=== PATIENT | male | born 1965 | race Caucasian/White ===

== ENCOUNTER 2019-10-22 14:51 | Outpatient (CLI) | payer OTHER, SELFPAY ==
--- NOTE | 2019-10-22 14:30 | DI.RAD_ITS ---
EXAM: XR TIB/FIB LT CLINICAL HISTORY: left calf pain TECHNIQUE: COMPARISON: No exams were available for comparison FINDINGS: Three views were obtained. No bony or soft tissue abnormality seen. IMPRESSION:
== END 2019-10-22 15:11 ==
PROVIDERS: PCP Family Medicine; Visit Provider Student in an Organized Health Care Education/Training Program
DX: M79.662 Pain in left lower leg (principal)
CPT/HCPCS: 73590

== ENCOUNTER 2020-03-06 07:30 | Outpatient (CLI) | payer OTHER, SELFPAY ==
[2020-03-09 19:25] LABS: Patient Race White; SARS-CoV-2 RNA Undetected (Undetected); SARS-CoV-2 Specimen Source Nasopharynx
== END 2020-03-06 07:50 ==
PROVIDERS: PCP Family Medicine; Visit Provider Family Medicine
DX: Z11.59 Encounter for screening for other viral diseases (principal)
CPT/HCPCS: U0003

== ENCOUNTER 2020-03-31 10:45 | Outpatient (CLI) | payer OTHER, SELFPAY ==
--- NOTE | 2020-03-31 10:30 | DI.RAD_ITS ---
EXAM: XR SHOULDER RT COMPLETE 2+V CLINICAL HISTORY: right shoulder pain TECHNIQUE: COMPARISON: CR RIGHT SHOULDER COMPLETE from 08/31/2016 FINDINGS: Two views were obtained. Cartilaginous joint space glenohumeral joint appears fairly well maintained . There is roughening of the inferior cortex of the acromion osteophyte formation noted. Mild AC lore int DJD noted as well. There are osteophytes of the greater tuberosity of the humerus and some small subchondral cysts are probably present in the humeral head as well. IMPRESSION: Degenerative changes as described above. RADIATION DOSE DELIVERED: Total DLP
== END 2020-03-31 11:05 ==
PROVIDERS: PCP Family Medicine; Referring Provider Family Medicine; Visit Provider Physician Assistant Surgical
DX: M19.011 Primary osteoarthritis, right shoulder (principal)
CPT/HCPCS: 73030

== ENCOUNTER 2020-08-27 06:26 | Day surgery (SDC) | payer OTHER, SELFPAY ==
[2020-08-27] VITALS (11 sets, daily range): BP systolic 111–138; BP diastolic 52–94; PULSE 50–63; RESP 14–20; TEMP 36.3–36.5; O2SAT 94–99
[2020-08-27] MEDS: Lactated Ringers 1,000 ML 100 ML IV ×2 (06:59→10:10)
[2020-08-27] MEDS: Bupivacaine 0.5% Pres-Free 30 ML VIAL (07:21)
[2020-08-27] MEDS: Bupivacaine LIPOSOME/PF 133 MG/10 ML VIAL IJ (07:21)
[2020-08-27] MEDS: ceFAZolin 2 GM/50 ML BAG IVPB (07:59)
[2020-08-27] MEDS: EPINEPHrine 30 MG/30 ML VIAL (09:43)
--- NOTE | 2020-08-27 10:16 | W.PM.DSUDISC ---
Discharge Plan Disposition Patient Disposition: HOME Condition: Stable Discharge Details Reason For Visit: Right shoulder surgery Attending Provider: Shlomo Fuller Primary Care Provider: Erin Valles Home Meds and New Rx's Prescriptions: New naproxen 250 mg tablet 250 - 500 mg PO BID PRN (Reason: Moderate pain or swelling) Qty: 60 RF: 0 aspirin 81 mg tablet,delayed release (DR/EC) 81 mg PO DAILY 14 Days Qty: 14 RF: 0 oxycodone 5 mg tablet 5 - 10 mg PO Q4H PRN (Reason: moderate to severe pain) Qty: 22 RF: 0 Continued omeprazole 20 MG capsule,delayed release(DR/EC) 20 mg PO DAILY PRNQty: 90 RF: 0 Discharge Instructions Additional Instructions: Surgery: Shoulder arthroscopy with rotator cuff repair, biceps tenodesis, extensive debridement, and subacromial decompression. Activity: You should keep your arm at your side in a neutral position at all times except for physical therapy. Do not try to lift or raise your arm using your own muscles. You should use the sling whenever you are out of the house. You may have to adjust the abduction pillow or remove it for comfort. At home it is best to remove the sling and rest the arm on a pillow at your side or support the operative side with your other hand. You may allow the arm to dangle at your side. A physical therapy prescription has been sent to begin on 09/03/20. Prescriptions: Aspirin 81 mg take 1 daily to prevent a blood clot for 2 weeks Naproxen 250 mg take 1-2 every 12 hours with a meal as needed for moderate pain Oxycodone 5 mg take 1-2 every 4-6 hours as needed for severe pain You may use [id number] Tylenol (acetaminophen) as needed for mild pain. These pain medications may be taken all at once or in different combinations as needed. Also, recommend Colace (docusate) as a stool softener as surgery and pain medicine cause constipation. Dressings: Remove shoulder bandage after 3 days. Leave the sticky Steri-Strips in place until they fall off or remove them after you shower. Cover the incisions with Band-Aids or leave them open to air. The biceps bandage (inside upper arm) is glued on separately. You may leave this one on a few days longer if it is difficult to remove. There is also glue underneath this bandage that can be left in place until it peels off. You may shower after 5 days. Follow-up: 10-[address] Fuller (09/09/20 at 8:45 AM) You may take off the leg compression stockings this evening at home. You may also leave them on a few days longer if you have a history of leg swelling or edema. Let us know right away if you develop any redness, drainage, fevers, chest pain, or trouble breathing. Do not drink alcohol or drive for at least 24 hours after anesthesia. Please call the office during business hours with any questions or concerns. Referrals: Shlomo Fuller MD [ [facility]YSICIAN] - Discharge Orders Discharge Orders: Discharge Order (Routine); Ordered 08/27/20 Ordered By: Shlomo Fuller DS: Diagnosis Discharge Diagnosis (1) Traumatic tear of right rotator cuff: Status: Acute (2) Biceps tendinopathy of right upper extremity: Status: Acute (3) Bursitis of right shoulder: Status: Acute
--- NOTE | 2020-08-27 11:46 | ROE_ITS ---
Date of service: 08/27/20 Time of Service: 08:00 Operative Note Operative Note DATE OF PROCEDURE: 08/27/20 PRE-OP DIAGNOSIS: Right: 1. Rotator cuff tear 2. LHB tendinopathy 3. Bursitis POST-OP DIAGNOSIS: same PROCEDURE: Right: 1. Rotator cuff repair, CPT# 14763. This involved repair of the supraspinatus using an anchor and sutures to reattach the rotator cuff back to the footprint of the greater tuberosity. 2. Open biceps tenodesis, CPT# 01245. This involved reattaching the long head of the biceps tendon to the proximal humerus in the sub-pectoral area of the bicipital groove at the correct tension. 3. Extensive debridement, CPT# 95672. This involved using arthroscopic hand instruments, power instruments, and radiofrequency instruments to release to release the long head of the biceps tendon and debride areas of labral tearing, synovitis, partial articular infraspinatus tearing, and chondromalacia about the biceps groove humeral head and central glenoid within the glenohumeral joint anteriorly, superiorly and posteriorly. 4. Subacromial decompression with partial acromioplasty, CPT# 41670. This involved using arthroscopic power instruments and a radiofrequency wand to complete a bursectomy and remove bone spurs on the undersurface of the acromion. The historian research assistant was medically required in order to help assist in techniques above, which require positioning the arm, holding the arthroscope, and manipulating multiple instruments and sutures at the same time. This cannot be done without the help of an experienced historian research assistant. SURGEON: Shlomo Fuller AUTO TUNE UP MECHANIC: Tj Nolasco ANESTHESIA TYPE: Local By Surgeon, General LMA/ETT and Primary Nerve Block Refer to Anesthesia Record ESTIMATED BLOOD LOSS: 15 PATHOLOGY: none sent COMPLICATIONS: None Patient was transported to: PACU Patient's condition: stable Implants: Arthrex: 4.75mm SwiveLocks x 1 and unicortical Proximal Biceps Tenodesis Button Indications: The patient was diagnosed with the above conditions and appropriately indicated for surgical intervention. Please see complete medical record for details. Findings: Exam under anesthesia: Full range of motion. No instability. Glenohumeral joint: Significant anterior, superior, and to a lesser extent posterior synovitis. Anterior labral fraying. Superior labral SLAP tear. Long head biceps tendon injection. Intact subscapularis. Full-thickness approximately 1 cm sized most anterior leading edge supraspinatus tear. Somewhat delaminated with posterior partial-thickness tearing less than 25% and intact middle segment. Infraspinatus articularly largely intact. Largely intact articular cartilage except for about the bicipital groove and central anterior glenoid with mild wear and articular fraying. Subacromial space: Only mild bursitis. Moderate undersurface acromial bone spur. Full-thickness supraspinatus most anterior leading edge tear with tissue remnant on the greater tuberosity. Remainder of rotator cuff intact. Procedure Description: In the operating room, general anesthesia was induced. Bilateral shoulders were examined. The patient was positioned in the beachchair position. All bony prominences were well-padded. Preoperative antibiotics were administered. The shoulder was prepped and draped in the usual sterile fashion. The correct patient, procedure, and side of the procedure were all verified prior to incision. Starting through the posterior portal a standard complete diagnostic arthroscopy was performed of the glenohumeral joint including inspection of the long head of the biceps, anterior and superior labrum, subscapularis tendon, supraspinatus and infraspinatus tendons, and axillary recess. The glenoid and humeral head cartilage as well as the posterior labrum were inspected from an anterior viewing portal. Significant findings and interventions noted above. The biceps tendon was released from the superior labrum using arthroscopic scissors. 10 cc of 0.25% bupivacaine with epinephrine was infiltrated about a 2 to 3 cm longitudinal incision at the inferior margin of the pectoralis major localized over the long head of the biceps tendon. Blunt and sharp dissection were used to expose the tendon in the bicipital groove. The tendon was brought out of the wound and kept off the skin on top of a blue towel. The correct location for sub-pectoral fixation was localized, prepped with a rasp, and then drilled with a 3.2 mm drill pin in a unicortical fashion. Using a fiber loop suture the tendon was prepped from the musculotendinous junction a few centimeters proximal. The excess tendon was amputated. The free suture ends were then passed through the unicortical button implant. The drill pin was removed and the implant was placed into the humeral intramedullary canal. The button was flipped and the sutures were tensioned bringing the tendon down to bone. Tension and fixation were then tested and found to be appropriate. A 90 degree clamp was used to pass 1 suture on the other side of the tendon and the free ends of the suture were were tied compressing tendon to bone. The wound was copiously irrigated with normal saline. Subcutaneous tissue was closed using 3- 0 Monocryl in a buried interrupted fashion. Skin was closed using 3-0 Monocryl in a buried subcuticular running fashion. Skin glue was applied over the incision. Mastisol was applied about the incision. The incision was covered with Telfa, gauze, and covered with a Tegaderm dressing. Starting through the posterior portal, the arthroscope was directed into the subacromial space. A lateral 50 yard line lateral portal was created. A combination of power instruments and a radiofrequency ablator were used to debride bursitis anteriorly, posteriorly, and laterally as well as expose and smooth bone spurring on the undersurface of the acromion. The coracoacromial ligament was only partially released. The bursectomy was completed viewing laterally and working from posteriorly and the rotator cuff was thoroughly inspected with findings noted above. A cannula was inserted at the 50 yard line portal as well as the superior anterior lateral portal localized over the very anterior full-thickness supraspinatus tear. The rotator cuff tear was inspected and debrided of frayed tissue over the bony footprint as well as at the anterior and posterior margins. The posterior margin had healthy tissue at the tear was not extended posteriorly into the partial articular tear. Rotator cuff grasper was used to confirm weston tissue directly over the tear that mobilized back to the greater tuberosity footprint although did not cover the entirety of the greater tuberosity as there was frayed tissue that had been debrided and remnant tissue more laterally. A self retrieving suture passer was used to pass a fiber tape in an inverted horizontal mattress fashion through the most out central portion of the tear. A self retrieving suture passer was then used to pass a suture tape fiber link in cinch mode through the posterior margin of the tear. Traction on the sutures confirmed appropriate tissue hold and reduction. The punch was used to localize placement of a single swivel lock anchor that was loaded with the both ends of the fiber tape and the end of the FiberLink sutures that were appropriately tensioned while screw was secured flush to bone. The repair was tested through range of motion as well as probed and found to be stable with secure fixation. The shoulder was drained of arthroscopic fluid. All portal sites were copiously irrigated. These incisions were closed using 3-0 Monocryl in a buried fashion, covered with Mastisol, Steri-Strips, Xeroform, dry gauze, and ABDs. The dressings were covered and secured with Medipore tape. The operative extremity was placed into a sling for immobilization. The patient awoke from anesthesia without complication and was transferred to the recovery room in a stable condition.
== END 2020-08-27 14:03 | disposition home or self-care (01) ==
PROVIDERS: PCP Family Medicine; Visit Provider Student in an Organized Health Care Education/Training Program
PROC: (CPT 29827; principal; 2020-08-27 07:30)
PROC: (CPT 23430; 2020-08-27 07:30)
DX: S46.011A Strain of muscle(s) and tendon(s) of the rotator cuff of right shoulder, initial encounter (principal); M75.51 Bursitis of right shoulder; M75.21 Bicipital tendinitis, right shoulder
CPT/HCPCS: 29827; 23430; 29823; 29826; 76942; J0131; J0690; J1100; J1885; J2001; J2250; J2405; J2704

== ENCOUNTER 2021-03-02 11:56 | Outpatient (CLI) | payer OTHER, SELFPAY ==
--- NOTE | 2021-03-02 11:45 | DI.RAD_ITS ---
Exam(s) XR KNEE LT 3V AP,LAT,DIPAK EXAM: XR KNEE LT 3V AP,LAT,DIPAK CLINICAL HISTORY: LEFT KNEE PAIN. TECHNIQUE: 2D digital imaging was performed. COMPARISON: No exams were available for comparison FINDINGS: BONES: No acute fracture is present. No bony destructive lesion is seen. JOINTS: The joint spaces are well maintained. No joint effusion is seen. There is mild spurring at t he articular aspect of the patella. SOFT TISSUE: Normal. IMPRESSION: Mild degenerative changes. DATA REPOSITORY: RADIATION DOSE DELIVERED:
== END 2021-03-02 11:57 | disposition home or self-care (01) ==
LOC: DIORS 11:57
PROVIDERS: PCP Family Medicine; Referring Provider Family Medicine; Visit Provider Student in an Organized Health Care Education/Training Program
DX: M25.562 Pain in left knee (principal)
CPT/HCPCS: 73562

== ENCOUNTER 2021-03-22 01:56 | Outpatient (CLI) | payer OTHER, SELFPAY ==
--- NOTE | 2021-03-22 07:15 | DI.MRI_ITS ---
Exam(s) MR LOWER JOINT LT WO EXAM: MR LOWER JOINT LT WO CLINICAL HISTORY: Persistent pain,ACUTE MENISCAL INJURY LT KNEE,S83.8X2A TECHNIQUE: Multiplanar multisequence MRI of the knee was performed. COMPARISON: X-rays 03/02/2021 were reviewed FINDINGS: EFFUSION: There is a small amount of increased joint fluid. There is also a small Arrington cyst in the medial popliteal fossa which measures 3.5 cm length by 0.4 cm wide by 0.4 cm AP. MARROW:There is mild subarticular bone contusion signal in the outer aspect of the medial tibial plat eau. No other abnormal intraosseous signal seen. No osteochondral defects. No osseous lesions PATELLOFEMORAL COMPARTMENT: The quadriceps tendon is intact. The patellar ligament is intact. There is surface fibrillation of the retropatellar cartilage over the medial facet. There is, howeve r, no osteochondral defect at this level nor abnormal signal within the patella. The retropatellar c artilage over the lateral facet appears unremarkable. There is nono intraosseous signal to suggest r ecent patellar dislocation. There are no patellar retinacular tears. CRUCIATE LIGAMENTS: The anterior cruciate ligament is intact.The posterior cruciate ligament is intac t. MEDIAL COMPARTMENT/MEDIAL MENISCUS: There is thin linear fluid signal seen within the posterior horn of the medial meniscus which parallels the inferior surface of the meniscus as seen on the coronal im ages. On the sagittal images is violates inferior articular surface on 1 image. The meniscal root i s intact. Anterior horn of the medial meniscus exhibits mild extrusion but no tear.There is signal a bnormality in the soft tissues adjacent to the medial collateral ligament. There is mild sprain sign al in the medial collateral ligament. Also some signal abnormality interposed between the outer aspe ct of the posterior horn of the meniscus and the posterior aspect of the MCL. There are no chondral defects nor osteochondral defects. No osteophytes. MEDIAL COLLATERAL LIGAMENT: As above. LATERAL COMPARTMENT/LATERAL MENISCUS: There is no evidence of lateral meniscal tear.There are no rachelle dral defects, osteochondral defects, subarticular marrow edema, nor osteophytes evident. ILIOTIBIAL BAND: Intact LATERAL COLLATERAL LIGAMENT COMPLEX: The fibular collateral ligament is intact. The biceps femoris t endon is intact.There is some fluid at the musculotendinous junction of the popliteus component of th e LCL complex. IMPRESSION: 1. Thin linear signal abnormality in the inferior aspect of the posterior horn of the medial meniscus which parallels the meniscal surface but does appear to violate the articular surface on 1 image and therefore may represent a tear. This does not involve the meniscal root. There is no bucket-handle configuration. There is mild subarticular edema in the tibial plateau immediately subjacent to this finding. No abnormal signal in the overlying femoral condyle. There is, however, some injury signa l interposed between the posterior aspect of the meniscus and the posterior aspect of the MCL. 2. No significant findings in the lateral compartment. 3. There is loss of the normal smooth contour over the retropatellar cartilage of the medial facet, t his over with a 1.4 cm. However, there is no deep fissure at this level, just surface irregularity a nd there is no abnormal degenerative signal within the patella. Similar findings are not seen over t he retropatellar cartilage of the lateral facet. 4. Anterior and posterior cruciate ligaments are intact. The iliotibial band is intact. Small joint effusion. Small Arrington cyst. DATA REPOSITORY:
== END 2021-03-22 02:16 ==
PROVIDERS: PCP Family Medicine; Visit Provider Student in an Organized Health Care Education/Training Program
DX: S83.8X2A Sprain of other specified parts of left knee, initial encounter (principal); M25.462 Effusion, left knee; M71.22 Synovial cyst of popliteal space [Baker], left knee
CPT/HCPCS: 73721

== ENCOUNTER 2021-04-06 01:51 | Outpatient (CLI) | payer OTHER, SELFPAY ==
[2021-04-06 09:52] LABS: Source Nasal/Nares
[2021-04-06 12:48] LABS: COVID-19 PCR Negative (Negative)
== END 2021-04-06 01:52 | disposition home or self-care (01) ==
LOC: LBO 01:51
PROVIDERS: PCP Family Medicine; Visit Provider Student in an Organized Health Care Education/Training Program
DX: Z20.822 Contact with and (suspected) exposure to COVID-19 (principal); Z01.818 Encounter for other preprocedural examination
CPT/HCPCS: 87635

== ENCOUNTER 2021-04-08 11:30 | Day surgery (SDC) | payer OTHER, SELFPAY ==
[2021-04-08] VITALS (9 sets, daily range): BP systolic 106–148; BP diastolic 50–92; PULSE 55–67; RESP 11–17; TEMP 36.4–36.7; O2SAT 95–99; BMI 31.3
--- NOTE | 2021-04-08 12:24 | W.ANESPRE ---
General Info Date of Service Date Performed: 04/08/21 Height: 5 ft 8 in Weight: 93.5 kg Body Mass Index (BMI): 31.3 Surgical Procedure: Operation Date: 04/08/21 13:10 Proposed Procedures Side Surgeon p Knee Arthroscopy with any indicated mensical,condral, and synovial surgery Left Shlomo Fuller MD Meds Allergies and Home Medications Allergies Allergy/AdvReac Type Severity Reaction Status Date / Time No Known Drug Allergies Allergy Unknown Verified 04/08/21 11:51 Home Medication Medication Instructions Recorded omeprazole 20 mg PO DAILY PRN #90 tab-cap 02/28/17 Current Visit Medications: Current Medications Generic Name Dose Route Start Last Admin Trade Name Freq PRN Reason Stop Dose Admin Ringer's Solution 1,000 mls @ 100 mls/hr 04/08/21 06:00 IV 05/07/21 23:59 INFUSION DREW Cefazolin Sodium/Dextrose 2 gm in 50 mls @ 100 mls/hr 04/08/21 06:00 Ancef Duplex IVPB 05/07/21 23:59 PREOP DREW IV Miscellaneous Supplies 1 each 04/08/21 06:00 Iv Access IV 05/07/21 23:59 DIRECTED DREW Naproxen 250 - 500 mg 04/08/21 12:01 Naproxen 500 Mg Tab PO BID PRN PRN Oxycodone HCl 5 - 10 mg 04/08/21 12:01 Oxycodone 5 Mg Tab PO Q4H PRN PRN Sodium Chloride 0 ml 04/08/21 06:00 Normal Saline Flush 10 Ml Syr IV 05/07/21 23:59 PRN PRN Sodium Chloride 0 ml 04/08/21 06:00 Normal Saline 10 Ml Vial IJ 05/07/21 23:59 DIRECTED PRN Sterile Water 0 ml 04/08/21 06:00 Water,Injection,Sterile 10 Ml Vial IJ 05/07/21 23:59 DIRECTED PRN PFSH Active Problems Active Problems: Problem Status Onset Code Right knee injury ~02/2021 S89.91XA Chondromalacia patellae of left knee M22.42 Acute medial meniscal injury of left knee ~12/2020 S83.8X2A S/P right rotator cuff repair 08/27/20 Z98.890 Gastroesophageal reflux disease with esophagitis K21.0 Annual physical exam 11/13/14 Z00.00 Medical History Medical History Biceps tendinopathy of right upper extremity Bursitis of right shoulder Bursitis of right shoulder Gastrocnemius strain, left Hamstring tightness of both lower extremities Knee pain Strain of right gastrocnemius muscle Tightness of both gastrocnemius muscles Traumatic tear of right rotator cuff (~01/2020) Surgical History Surgical History Colonoscopy - IV Sedation (05/04/15) PROCEDURES l shoulder bone spurs, fixed a tear. r knee arthroscopy l achilles tendon Tonsillectomy Tobacco Smoking/Tobacco Use Status: Former Tobacco Use Alcohol Alcohol Intake: current Alcohol intake frequency: a few times a week Substance Use Substance use: Never Substance use type: does not use Vital Signs and Lab Results Vital Signs Most Recent Vital Signs in EMR: Most Recent Vital Signs Temp Pulse Resp BP Pulse Ox 36.6 C 67 16 148/92 H 97 04/08/21 11:54 04/08/21 11:54 04/08/21 11:54 04/08/21 11:54 04/08/21 11:54 Lab Results Blood Type / Crossmatch: No Data to Display Complete Blood Count: No Data to Display Complete Metabolic Panel: No Data to Display Liver Function Panel: No Data to Display Coagulation Panel: No Data to Display Cardiac Panel: No Data to Display Arterial Blood Gas: No Data to Display Venous Blood Gas: No Data to Display Pancreas Panel: No Data to Display Thyroid Panel: No Data to Display Infectious Disease: Coronavirus (COVID-19)(PCR) Negative (Negative) 04/06/21 08:31 04/06/21 Coronavirus 2019 Source Nasal/Nares 04/06/21 08:31 04/06/21 Blood Cultures: No Data to Display Toxicology Panel: No Data to Display Anesthesia Assessment and Plan Anesthesia History Personal History: No History of Anesthesia Complications Family History: No Family History of Anesthesia Complications Exercise Tolerance Exercise Tolerance: Metabolic Equivalents>4 Pertinent Negatives Pertinent Negatives: No Symptoms of GERD, No Major Cardiovascular Symptoms or Complaints and No Major Pulmonary Symptoms or Complaints Cardiac & Pulmonary Exam Cardiac Exam: Normal S1/S2 Heart Sounds Pulmonary Exam: Clear Bilateral Breath Sounds Airway Exam Known Difficult Airway: No Mallampati Class: 2 Mouth Opening: Normal (> 3cm) Thyromental Distance: Greater than 3 cm Neck Range of Motion: Full ROM Neck Circumference: Normal Teeth Condition: Normal Dentition ASA Classification ASA Score: ASA 2 Emergency Case?: No NPO Status NPO Status: NPO Clears >2 hours, Solids >8 hours Anesthesia Plan Resuscitation Status: Full Code Anesthesia Technique: General Anesthesia Airway Planned: LMA Monitors Used: Standard Monitors
[2021-04-08] MEDS: Lactated Ringers 1,000 ML 100 ML IV (12:35)
[2021-04-08] MEDS: ceFAZolin 2 GM/50 ML BAG IVPB (12:57)
[2021-04-08] MEDS: EPINEPHrine 30 MG/30 ML VIAL (14:01)
[2021-04-08] MEDS: MORPHine 4 MG/ML SYR (14:04)
--- NOTE | 2021-04-08 14:22 | PDOC.DSDIS_ITS ---
Discharge Plan Disposition Patient Disposition: HOME Condition: Stable Discharge Details Reason For Visit: Left knee surgery Attending Provider: Shlomo Fuller Primary Care Provider: Erin Valles Home Meds and New Rx's Prescriptions: New naproxen 250 mg tablet 250 - 500 mg PO BID PRN (Reason: Moderate pain or swelling) Qty: 40 RF: 0 aspirin 81 mg tablet,delayed release (DR/EC) 81 mg PO DAILY 14 Days Qty: 14 RF: 0 oxycodone 5 mg tablet 5 - 10 mg PO Q4H PRN (Reason: moderate to severe pain) Qty: 12 RF: 0 Continued omeprazole 20 MG capsule,delayed release(DR/EC) 20 mg PO DAILY PRNQty: 90 RF: 0 Discharge Instructions Additional Instructions: Surgery: Left knee arthroscopy with partial medial and lateral meniscectomy Activity: Weightbearing as tolerated. Advance range of motion as comfort allows. No knee brace or crutches needed as soon as comfortable. Recommend avoiding cutting, pivoting, or squatting for 6-8 weeks. A physical therapy prescription will be sent electronically to start in 2 to 3 weeks. Prescriptions: Aspirin 81 mg take 1 daily to prevent a blood clot for 14 days Naproxen 250 mg take 1-2 every 12 hours with a meal as needed for moderate pain Oxycodone 5 mg take 1-2 every 4-6 hours as needed for severe pain You may use [id number] Tylenol (acetaminophen) as needed for mild pain. These pain medications may be taken all at once or in different combinations as needed. Also, recommend Colace (docusate) as a stool softener as surgery and pain medicine cause constipation. Dressings: Leave dressing in place for 3 days. May then remove and leave open to air or cover incisions with Band-Aids. May shower after 5 days. Follow-up: 10-[address] Fuller Let us know right away if you develop any redness, drainage, fevers, chest pain, or trouble breathing. Do not drink alcohol or drive for at least 24 hours after anesthesia. Please call the office during business hours with any questions or concerns. Referrals: Shlomo Fuller MD [ [facility]FF PHYSICIAN] - Discharge Orders Discharge Orders: Discharge Order (Routine); Ordered 04/08/21 Ordered By: Shlomo Fuller DS: Diagnosis Discharge Diagnosis (1) Chondromalacia patellae of left knee: Status: Acute (2) Acute medial meniscal injury of left knee: Status: Acute (3) Chondrocalcinosis: Status: Acute
--- NOTE | 2021-04-08 14:31 | ROE_ITS ---
Date of service: 04/08/21 Time of Service: 13:00 Operative Note Operative Note DATE OF PROCEDURE: 04/08/21 PRE-OP DIAGNOSIS: Left knee 1. Medial meniscus tear 2. Chondromalacia patella POST-OP DIAGNOSIS: other Left knee 1. Medial meniscus tear 2. Chondromalacia patella 3. Possible chondrocalcinosis PROCEDURE: Left knee 1. Partial medial & lateral meniscectomy, CPT #81300 SURGEON: Shlomo Fuller SHALE PLANER OPERATOR HELPER: None None ANESTHESIA TYPE: Local By Surgeon and General LMA/ETT Refer to Anesthesia Record ESTIMATED BLOOD LOSS: 5 PATHOLOGY: none sent TOURNIQUET TIME: 0 COMPLICATIONS: None Patient was transported to: PACU Patient's condition: stable Indications: Please see complete medical record for details. Findings: Exam under anesthesia: Full range of motion, stable. Arthroscopic findings: Inflamed synovium patellofemoral medial intercondylar, lateral compartments. Posterior horn and body medial meniscus junction complex horizontal and inferior radial tear. Tiny chondrocalcinosis apparent deposits medial tibial plateau, lateral tibial plateau, and body lateral meniscus. Medial patellar facet grade 2?3 chondromalacia about 15 x 15 mm. Intact ACL. Fraying small tearing at lateral meniscus posterior horn root junction. Procedure Description: In the operating room, genral anesthesia was induced. The patient was positioned supine on the operating room table. All bony prominences were well-padded. Preoperative antibiotics were administered. The knee was prepped and draped in the usual sterile fashion. The correct patient, procedure, and side of the procedure were all verified prior to incision. Exam under anesthesia was performed. 10 cc of 0.5% bupivacaine containing epinephrine was infiltrated about the planned anteromedial and anterolateral knee arthroscopy portals. The portals were established and a complete diagnostic arthroscopy was performed with relevant findings detailed above. The mechanical shaver was used to remove inflamed excessive synovium from the anteromedial, anterolateral, and patellofemoral compartments. In the [id number] position, the mechanical shaver was used to lightly debride removing the small amount of fraying and tearing from the posterior horn lateral meniscus root area as well as remove apparent chondrocalcinosis from this injury area as well as the body of the lateral meniscus with slight removal of white zone meniscal tissue. Attention was turned back to the medial compartment. Using a combination of hand instruments including meniscal biters and a power shaver and working through the anteromedial and anterolateral compartments the medial meniscus was debrided of all torn tissue to a stable margin. Care was taken to preserve as much meniscus tissue was possible. The meniscal remnant was probed and found to have a stable margin, stable root, and no other tears. There was no unstable cartilage and no chondroplasty was indicated at the medial facet of the patella. Under direct arthroscopic visualization an 18-gauge needle was passed into the knee from superolateral into the suprapatellar pouch. The knee was copiously irrigated with arthroscopic fluid until there was a clear effluent before being drained of all fluid. The anteromedial and anterolateral portals were closed in 3-0 Monocryl in a buried interrupted fashion. 20 cc of 0.5% bupivacaine with epinephrine containing 4 mg of morphine was infiltrated into the knee through the previously placed needle. Mastisol, Steri-Strips, and 4 x 4 gauze were applied over the incisions followed by sterile soft roll. The knee was then wrapped gently with an VIVIENNE comressive bandage. The patient awoke from anesthesia without complication and was transferred to the recovery room in a stable condition.
--- NOTE | 2021-04-08 15:42 | W.ANESPOSTOP ---
Postoperative Evaluation Date, Time and Location Date Performed: 04/08/21 Time Performed: 15:42 Patient Location: Day Surgery Unit Vital Signs Most Recent Imported Vital Signs: Most Recent Vital Signs Temp Pulse Resp BP Pulse Ox 36.4 C L 55 L 16 131/79 95 04/08/21 15:23 04/08/21 15:23 04/08/21 15:23 04/08/21 15:23 04/08/21 15:23 Pain Score Most Recent Pain Score: Most Recent Pain Score Pain Level 0 04/08/21 15:23 Assessment Mental Status: Awake (Alert & Oriented to Patient Baseline) Airway and Respiratory Function: Patent airway with normal (patient baseline) respiratory exam Cardiovascular Function: Hemodynamically Stable Hydration Status: Adequately Hydrated Nausea & Vomiting: No Nausea or Vomiting Pain: Pain is tolerable per patient Peripheral Nerve Block: Patient did not receive a nerve block
== END 2021-04-08 16:55 | disposition home or self-care (01) ==
PROVIDERS: PCP Family Medicine; Visit Provider Student in an Organized Health Care Education/Training Program
PROC: (CPT 29870; principal; 2021-04-08 13:00)
DX: S83.232A Complex tear of medial meniscus, current injury, left knee, initial encounter (principal); S83.282A Other tear of lateral meniscus, current injury, left knee, initial encounter; X58.XXXA Exposure to other specified factors, initial encounter; M22.42 Chondromalacia patellae, left knee
CPT/HCPCS: 29880; J0690; J1100; J1885; J2001; J2250; J2270; J2405; J2704

== ENCOUNTER 2022-01-12 11:53 | Outpatient (REF) | payer OTHER, SELFPAY ==
[2022-01-12 15:56] LABS: Anion Gap 7.6 mmol/L (3-11); BUN 14 mg/dL (7-18); CO2 28.4 mmol/L (21.0-32.0); Calcium 8.8 mg/dL (8.5-10.1); Chloride 105 mmol/L (98-107); Cholesterol 243 mg/dL (<200); Glucose 101 mg/dL (74-106); HDL Cholesterol 48 mg/dL (40-60); Potassium 4.3 mmol/L (3.5-5.1); Sodium 141 mmol/L (136-145); Triglyceride 426 mg/dL (<150)
[2022-01-12 16:12] LABS: LDL CHOLESTEROL 122 mg/dL (<100)
[2022-01-12 23:18] LABS: PSA, Screening 0.8 ng/mL (<=3.5)
== END 2022-01-12 11:54 | disposition home or self-care (01) ==
LOC: LBN 11:53
PROVIDERS: PCP Family Medicine; Visit Provider Physician Assistant
DX: Z00.00 Encounter for general adult medical examination without abnormal findings (principal); Z12.5 Encounter for screening for malignant neoplasm of prostate; E78.5 Hyperlipidemia, unspecified
CPT/HCPCS: 80048; 80061; 83721; 84153

== ENCOUNTER 2023-05-08 10:09 | Outpatient (REF) | payer OTHER, SELFPAY ==
[2023-05-08 14:42] LABS: Anion Gap 10.9 mmol/L (3-11); BUN 13 mg/dL (7-18); CO2 26.1 mmol/L (21.0-32.0); CREATININE 0.9 mg/dL (0.70-1.30); Calcium 9.3 mg/dL (8.5-10.1); Chloride 103 mmol/L (98-107); Cholesterol 303 mg/dL (<200); Glucose 126 mg/dL (74-106); HDL Cholesterol 48 mg/dL (40-60); Potassium 4.2 mmol/L (3.5-5.1); Sodium 140 mmol/L (136-145); Triglyceride 503 mg/dL (<150)
[2023-05-08 15:04] LABS: LDL CHOLESTEROL 134 mg/dL (<100)
[2023-05-09 00:03] LABS: PSA, Screening 0.8 ng/mL (<=3.5)
== END 2023-05-08 10:10 | disposition home or self-care (01) ==
LOC: NCHCN 10:09
PROVIDERS: Visit Provider Physician Assistant
DX: E78.5 Hyperlipidemia, unspecified (principal); R03.0 Elevated blood-pressure reading, without diagnosis of hypertension; Z12.5 Encounter for screening for malignant neoplasm of prostate
CPT/HCPCS: 80048; 80061; 83721; 84153

== ENCOUNTER → 2023-08-01 11:17 | Outpatient (CLI) | payer OTHER, SELFPAY ==
--- NOTE | 2023-08-01 | DI.RAD_ITS ---
Exam(s) XR CHEST 2V PA LATERAL EXAM: XR CHEST 2V PA LATERAL CLINICAL HISTORY: PERSISTENT CHRONIC COUGH, R05.3 TECHNIQUE: 2D digital imaging was performed. COMPARISON: CR CHEST 2 VIEWS PA,LAT from 04/23/2015 FINDINGS: HEART: Normal size. Aorta: Not dilated. PULMONARY VASCULATURE: Normal. LUNGS: Clear. PLEURAL SPACE: No pleural effusion or pneumothorax. BONE:Unremarkable for age. Soft tissues: Unremarkable. IMPRESSION: No acute abnormality. DATA REPOSITORY: RADIATION DOSE DELIVERED:
== END ==
PROVIDERS: PCP Student in an Organized Health Care Education/Training Program; Visit Provider Student in an Organized Health Care Education/Training Program
DX: R05.3 Chronic cough (principal)
CPT/HCPCS: 71046

== ENCOUNTER 2023-08-01 11:34 | Outpatient (REF) | payer OTHER, SELFPAY ==
[2023-08-01 15:32] LABS: Abs Immature Grans 0.03 10^3/uL (0.0-0.06); Absolute Basophil Count 0.08 10^3/uL (0.0-0.2); Absolute Eosinophil Count 0.24 10^3/uL (0.0-0.7); Absolute Monocyte Count 0.64 10^3/uL (0.1-0.8); Absolute Neutrophil Count 3.89 10^3/uL (1.2-6.7); Basophils % 1.2; Eosinophils % 3.6; HCT 44.8 % (40.0-50.0); HGB 16.2 g/dL (13.5-17.5); Immature Grans % 0.5; Lymphocytes % 25.8; MCH 32.2 pg (27.0-33.0); MCHC 36.2 % (32.0-36.0); MCV 89 fL (80-95); MPV 10.5 fL (8.0-11.0); Monocytes % 9.7; Neutrophils % 59.2; Platelet Count 265 10^3/uL (130-400); RBC 5.03 10^6/uL (4.36-5.78); RDW 12.4 % (11.8-14.1); RDW-SD 40.3 fL; WBC 6.58 10^3/uL (4.4-10.8)
[2023-08-01 15:38] LABS: ESR 6 mm/hr (0-20)
[2023-08-01 15:52] LABS: ALT 40 U/L (16-63); AST 24 U/L (15-37); Albumin 3.9 g/dL (3.4-5.0); Alkaline Phosphatase 94 U/L (46-116); Anion Gap 9.7 mmol/L (3-11); BUN 10 mg/dL (7-18); Bilirubin, Total 0.9 mg/dL (0.2-1.0); CO2 27.3 mmol/L (21.0-32.0); CREATININE 0.9 mg/dL (0.70-1.30); Calcium 9.4 mg/dL (8.5-10.1); Chloride 103 mmol/L (98-107); Glucose 103 mg/dL (74-106); Potassium 4.7 mmol/L (3.5-5.1); Sodium 140 mmol/L (136-145); Total Protein 7.1 g/dL (6.4-8.2)
[2023-08-01 15:54] LABS: C-Reactive Protein < 0.50 mg/dL (<or=0.5)
== END 2023-08-01 11:35 | disposition home or self-care (01) ==
LOC: NCHCN 11:34
PROVIDERS: PCP Student in an Organized Health Care Education/Training Program; Visit Provider Student in an Organized Health Care Education/Training Program
DX: R05.3 Chronic cough (principal)
CPT/HCPCS: 80053; 85652; 85025; 86140

== ENCOUNTER 2023-10-24 15:43 | Outpatient (CLI) | payer OTHER, SELFPAY ==
--- NOTE | 2023-10-24 10:15 | DI.RAD_ITS ---
Exam(s) XR KNEE RT 3V AP,LAT,DIPAK EXAM: XR KNEE RT 3V AP,LAT,DIPAK CLINICAL HISTORY: RIGHT KNEE PAIN. TECHNIQUE: 2D digital imaging was performed. Three views. COMPARISON: MR MR LOWER JOINT LT WO from 03/22/2021 FINDINGS: BONES: No acute fracture is present. No bony destructive lesion is seen. JOINTS: The knee is normally aligned. No joint effusion is seen. The joint spaces are maintained. Pr ominent chondrocalcinosis is noted. Spurring at the articular aspect of the patella. SOFT TISSUE: Normal. IMPRESSION: Chondrocalcinosis. DATA REPOSITORY: RADIATION DOSE DELIVERED:
== END 2023-10-24 15:44 | disposition home or self-care (01) ==
LOC: DIORS 15:43
PROVIDERS: PCP Student in an Organized Health Care Education/Training Program; Visit Provider Physician Assistant
DX: M25.561 Pain in right knee (principal); M11.261 Other chondrocalcinosis, right knee
CPT/HCPCS: 73562

== ENCOUNTER → 2023-11-08 03:29 | Outpatient (CLI) | payer OTHER, SELFPAY ==
--- NOTE | 2023-11-08 10:00 | DI.MRI_ITS ---
Exam(s) MR LOWER JOINT RT WO EXAM: MR LOWER JOINT RT WO CLINICAL HISTORY: R KNEE PAIN,chondrocalcinosis,injury,chondromalacia patella,m22.42. TECHNIQUE: Multiplanar multisequence MRI was performed. COMPARISON: MR MR LOWER JOINT LT WO from 03/22/2021 CR XR KNEE RT 3V AP,LAT,DIPAK from 10/24/2023 FINDINGS: BONES: There is no fracture or contusion pattern. There is mild marrow edema seen in the medial aspec t of the medial tibial plateau but no fracture is seen. JOINTS: The articular cartilage is well maintained. No effusion is present. TENDONS: Extensor mechanism: Unremarkable. Medial retinaculum: Unremarkable. Lateral retinaculum: Unremarkable. Popliteus: Unremarkable. MUSCLES: Unremarkable. MENISCI: There is a linear area of intermediate signal paralleling the articular surface of the menis cus in the body which may represent degeneration. The meniscus is otherwise unremarkable. The lateral meniscus is unremarkable. SOFT TISSUES: There is a cystic structure lying superior and medial to the ulnar head and measuring a t least 5 cm by 2 cm. This may represent a ganglion cyst. It runs adjacent to the popliteal tendon. LIGAMENTS: Anterior Cruciate: Unremarkable. Posterior Cruciate: Unremarkable. Medial Collateral:There is a small amount of hyper intense signal around the medial collateral ligame nt which appears intact but this may represent a mild sprain. Lateral Collateral: Unremarkable. OTHER: IMPRESSION: 1. No evidence of an occult fracture. 2. No evidence of a ligament tear. There is a small amount of hyperintense signal round the medial co llateral ligament which may represent a mild sprain. 3. No definite evidence of a meniscal tear. Findings suggestive of medial meniscal degeneration. 4. 5 x 2 cm fluid collection superior and medial to the ulnar head which may represent a ganglion cys t. DATA REPOSITORY:
== END ==
PROVIDERS: PCP Student in an Organized Health Care Education/Training Program; Visit Provider Student in an Organized Health Care Education/Training Program
DX: M25.561 Pain in right knee
CPT/HCPCS: 73721

== ENCOUNTER 2023-12-01 08:54 | Day surgery (SDC) | payer OTHER, SELFPAY ==
[2023-12-01] VITALS (36 sets, daily range): BP systolic 113–157; BP diastolic 66–99; PULSE 49–92; RESP 13–19; TEMP 35.8–36.7; O2SAT 93–99; BMI 31.5
--- NOTE | 2023-12-01 07:13 | W.PM.DSUDISC ---
Date of service: 12/01/23 Time of Service: 13:00 Discharge Plan Disposition Patient Disposition: Home Condition: Stable Discharge Details Attending Provider: Shlomo Fuller Primary Care Provider: Thaddeus Lange Home Meds and New Rx's Prescriptions: New aspirin 81 mg capsule 81 mg PO DAILY 14 Days Qty: 14 0RF naproxen 250 mg tablet 250 - 500 mg PO BID PRN (Reason: moderate pain and swelling) Qty: 40 0RF oxycodone 5 mg tablet 5 - 10 mg PO .q4-6h MDD 30 mg PRN (Reason: severe pain) Qty: 9 0RF Continued lisinopril 10 mg tablet 10 mg PO DAILY budesonide-formoterol 160-4.5 mcg/actuation HFA aerosol inhaler 1 inh inhalation ONCE omeprazole 20 MG capsule,delayed release(DR/EC) 20 mg PO DAILY PRNQty: 90 Discharge Instructions Additional Instructions: Surgery: Right knee arthroscopy with partial medial & lateral meniscectomy and extensive debridement; Moderate diffuse chondrocalcinosis and chondromalacia Activity: Weightbearing as tolerated. Advance range of motion as comfort allows. No knee brace or crutches needed as soon as comfortable. Recommend avoiding sports, pivoting, and squatting for 6-8 weeks. A physical therapy prescription will be sent electronically to start in 2 to 3 weeks. Prescriptions: Aspirin 81 mg take 1 daily to prevent a blood clot for 14 days, starting tomorrow morning Naproxen 250 mg take 1-2 every 12 hours with a meal as needed for moderate pain Oxycodone 5 mg take 1-2 every 4-6 hours as needed for severe pain You may use [id number] Tylenol (acetaminophen) as needed for mild pain. These pain medications may be taken all at once or in different combinations as needed. Also, recommend Colace (docusate) as a stool softener as surgery and pain medicine cause constipation. You may try [id number] diphenhydramine (Benadryl) 25-50 mg nightly as a sleep aid Dressings: Leave dressing in place for 3 days. May then remove and leave open to air or cover incisions with Band-Aids. Leave the sticky Steri-Strips in place until they fall off or remove them after you shower. May shower after 5 days. Follow-up: 10-[address] Fuller You may take off the leg compression stockings this evening at home. You may also leave them on a few days longer if you have a history of leg swelling or edema. Let us know right away if you develop any redness, drainage, fevers, chest pain, or trouble breathing. Do not drink alcohol or drive for at least 24 hours after anesthesia. Please call the office during business hours with any questions or concerns. Discharge Orders Discharge Orders: Discharge Order (Routine); Ordered 12/01/23 Ordered By: Adriana Man DS: Diagnosis Discharge Diagnosis (1) Acute medial meniscal injury of right knee: Status: Acute (2) Chondrocalcinosis of right knee: Status: Acute
--- NOTE | 2023-12-01 07:22 | ROE_ITS ---
Date of service: 12/01/23 Time of Service: 11:00 Operative Note Operative Note DATE OF PROCEDURE: 12/01/23 PRE-OP DIAGNOSIS: Right knee 1. Medial meniscus tear 2. Chondrocalcinosis 3. Chondromalacia POST-OP DIAGNOSIS: same Right knee 1. Medial meniscus tear 2. Chondrocalcinosis 3. Chondromalacia 4. Lateral meniscus tear PROCEDURE: Right knee 1. Partial medial & lateral meniscectomy, CPT #57773 2. Extensive debridement, CPT #96284: Diffuse chondrocalcinosis and synovitis SURGEON: Shlomo Fuller QUALITY ENGINEER MEDICAL DEVICE: None None ANESTHESIA TYPE: Local By Surgeon and General LMA/ETT Refer to Anesthesia Record ESTIMATED BLOOD LOSS: 5 PATHOLOGY: none sent TOURNIQUET TIME: 0 COMPLICATIONS: None Patient was transported to: PACU Patient's condition: stable Indications: Please see complete medical record for details. Findings: Exam under anesthesia: Moderately stiff lacking 3-5 degrees terminal extension, and moderately stiff no instability to varus valgus or Leeanne testing. Arthroscopic findings: Diffuse moderate?grade chondromalacia, chondrocalcinosis, abundant inflamed synovitis, and calcium throughout all compartments cartilage and synovium. Posterior horn body medial meniscus junction undersurface complex moderately sized tear. Lateral meniscus root partial tear. Intact ACL. Procedure Description: In the operating room, general anesthesia was induced. The patient was positioned supine on the operating room table. All bony prominences were well- padded. Preoperative antibiotics were administered. The knee was prepped and draped in the usual sterile fashion. The correct patient, procedure, and side of the procedure were all verified prior to incision. Exam under anesthesia was performed. 10 cc of 0.25% bupivacaine containing epinephrine was infiltrated about the planned anteromedial and anterolateral knee arthroscopy portals. The portals were established and a complete diagnostic arthroscopy was performed with relevant findings detailed above. An extensive debridement was done throughout the knee removing pathologic synovium, calcium on the cartilage and soft tissues throughout the knee, and resecting suprapatellar adhesions. The mechanical shaver was used to remove abundant inflamed synovium from the anteromedial, anterolateral, and patellofemoral compartments. The intercondylar area was thoroughly debrided as well with the shaver and the radiofrequency ablator. In the suprapatellar space, the radiofrequency wand was used to resect some moderate superior lateral and medial adhesions. The torpedo and mechanical shaver were then alternated to debride calcium carefully off cartilage in the medial, lateral and patellofemoral compartments. Given the chondromalacia and moderate degenerative changes, the medial compartment of the knee was difficult to access. Using a combination of hand instruments including meniscal biters and a torpedo shaver and working through the anteromedial and anterolateral portals the medial meniscus was debrided of all torn tissue to a stable margin. Care was taken to preserve as much meniscus tissue was possible. The meniscal remnant was probed and found to have a stable margin, stable root, and no other tears. Similarly, the lateral meniscus was debrided lightly through the body and moderately near the root with the biters and torpedo shaver. Cartilage fibrillations were resected lightly to a more smooth stable margin with the torpedo but no formal chondroplasty was done. Under direct arthroscopic visualization an 18-gauge needle was passed into the knee from superolateral into the suprapatellar pouch. The knee was copiously irrigated with arthroscopic fluid until there was a clear effluent before being drained of all fluid. The anteromedial and anterolateral portals were closed in 3-0 Monocryl in a buried interrupted fashion. 20 cc of 0.25% bupivacaine with epinephrine was infiltrated into the knee through the previously placed needle. Steri-Strips, and 4 x 4 gauze were applied over the incisions. The knee was then wrapped gently with an VIVIENNE comressive bandage. The patient awoke from anesthesia without complication and was transferred to the recovery room in a stable condition.
[2023-12-01] MEDS: Lactated Ringers 1,000 ML 30 ML IV (09:29)
--- NOTE | 2023-12-01 09:38 | W.ANESPRE ---
General Info Date of Service Date Performed: 12/01/23 Height: 5 ft 8 in Weight: 94.1 kg Body Mass Index (BMI): 31.5 Surgical Procedure: Operation Date: 12/01/23 09:55 Proposed Procedure Side Surgeon p Knee Arthroscopy Right Shlomo Fuller MD Meds Allergies and Home Medications Allergies Allergy/AdvReac Type Severity Reaction Status Date / Time No Known Allergies Allergy Verified 12/01/23 09:14 Home Medication Medication Instructions Recorded omeprazole 20 mg capsule,delayed 20 mg PO DAILY PRN #90 tab-caps 02/28/17 release budesonide-formoterol HFA 160 1 inh inhalation ONCE 10/24/23 mcg-4.5 mcg/actuation aerosol inhaler lisinopril 10 mg tablet 10 mg PO DAILY 10/24/23 Current Visit Medications: Current Medications Generic Name Dose Route Start Last Admin Trade Name Freq PRN Reason Stop Dose Admin Ringer's Solution 1,000 mls @ 30 mls/hr 12/01/23 06:00 12/01/23 09:29 IV 12/01/23 23:59 30 mls/hr INFUSION DREW Administration Cefazolin Sodium/Dextrose 2 gm in 50 mls @ 100 mls/hr 12/01/23 06:00 Ancef Duplex IVPB 12/01/23 23:59 PREOP DREW Tranexamic Acid/Sodium Chloride 1,000 mg in 100 mls @ 600 mls/hr 12/01/23 06:00 IVPB 12/01/23 23:59 PREOP DREW IV Miscellaneous Supplies 1 each 12/01/23 06:00 Iv Access IV 12/01/23 23:59 DIRECTED DREW Oxycodone HCl 0 mg 12/01/23 07:12 Oxycodone 5 Mg Tab PO 12/31/23 07:11 Q3H PRN PRN Pain Sodium Chloride 0 ml 12/01/23 06:00 Normal Saline Flush 10 Ml Syr IV 12/01/23 23:59 PRN PRN Sodium Chloride 0 ml 12/01/23 06:00 Normal Saline 10 Ml Vial IJ 12/01/23 23:59 DIRECTED PRN Sterile Water 0 ml 12/01/23 06:00 Water,Injection,Sterile 10 Ml Vial IJ 12/01/23 23:59 DIRECTED PRN PFSH Active Problems Active Problems: Problem Status Onset Code Chondrocalcinosis of right knee M11.261 Acute medial meniscal injury of right knee S83.8X1A Chondrocalcinosis M11.20 Right knee injury ~02/2021 S89.91XA Chondromalacia patellae of left knee M22.42 Acute medial meniscal injury of left knee ~12/2020 S83.8X2A S/P right rotator cuff repair 08/27/20 Z98.890 Gastroesophageal reflux disease with esophagitis K21.0 Annual physical exam 11/13/14 Z00.00 Medical History Medical History Knee pain Bursitis of right shoulder Traumatic tear of right rotator cuff (~01/2020) Strain of right gastrocnemius muscle Bursitis of right shoulder Biceps tendinopathy of right upper extremity Hamstring tightness of both lower extremities Tightness of both gastrocnemius muscles Gastrocnemius strain, left Surgical History Surgical History Tonsillectomy PROCEDURES l shoulder bone spurs, fixed a tear. r knee arthroscopy l achilles tendon Colonoscopy - IV Sedation (05/04/15) Tobacco Smoking/Tobacco Use Status: Former Tobacco Use Alcohol Alcohol Intake: current Alcohol intake frequency: a few times a week Substance Use Substance use: Never Substance use type: does not use Vital Signs and Lab Results Vital Signs Most Recent Vital Signs in EMR: Most Recent Vital Signs Temp Pulse Resp BP Pulse Ox 36.5 C 61 14 142/90 H 96 12/01/23 08:58 12/01/23 08:58 12/01/23 08:58 12/01/23 08:58 12/01/23 08:58 Lab Results Blood Type / Crossmatch: No Data to Display Complete Blood Count: No Data to Display Complete Metabolic Panel: No Data to Display Liver Function Panel: No Data to Display Coagulation Panel: No Data to Display Cardiac Panel: No Data to Display Arterial Blood Gas: No Data to Display Venous Blood Gas: No Data to Display Pancreas Panel: No Data to Display Thyroid Panel: No Data to Display Infectious Disease: No Data to Display Blood Cultures: No Data to Display Toxicology Panel: No Data to Display Anesthesia Assessment and Plan Anesthesia History Personal History: No History of Anesthesia Complications Family History: No Family History of Anesthesia Complications Exercise Tolerance Exercise Tolerance: Metabolic Equivalents>4 Pertinent Negatives Pertinent Negatives: No Symptoms of GERD, No Major Cardiovascular Symptoms or Complaints, No Major Pulmonary Symptoms or Complaints and No History of CVA/TIA Cardiac & Pulmonary Exam Cardiac Exam: Normal S1/S2 Heart Sounds Pulmonary Exam: Clear Bilateral Breath Sounds Implantable Cardiac Device Does patient have a Pacemaker or an ICD?: No Airway Exam Known Difficult Airway: No Mallampati Class: 2 Mouth Opening: Normal (> 3cm) Thyromental Distance: Greater than 3 cm Neck Range of Motion: Full ROM Neck Circumference: Normal Teeth Condition: Normal Dentition ASA Classification ASA Score: ASA 2 Emergency Case?: No NPO Status NPO Status: NPO Clears >2 hours, Solids >8 hours Anesthesia Plan Resuscitation Status: Full Code Anesthesia Technique: General Anesthesia Airway Planned: Endotracheal Tube Monitors Used: Standard Monitors Preoperative Comments:: Underlying chronic chest congestion no fever, lungs clear, daily inhaler use
[2023-12-01] MEDS: ceFAZolin 2 GM/50 ML BAG IVPB (09:56)
[2023-12-01] MEDS: TRANEXAMIC ACID/SOD. CHL. 1,000 MG/100 ML BAG 600 MG IVPB (10:06)
[2023-12-01] MEDS: Bupivacaine 0.25% Pres-Free W/EPI 30 ML VIAL (10:31)
[2023-12-01] MEDS: EPINEPHrine 10 MG/10 ML ML (10:34)
[2023-12-01] MEDS: HYDROmorphone 2 MG/ML SYR IVP (11:43)
[2023-12-01] MEDS: Normal Saline 10 ML VIAL IJ (11:43)
--- NOTE | 2023-12-01 12:49 | W.ANESPOSTOP ---
Postoperative Evaluation Date, Time and Location Date Performed: 12/01/23 Time Performed: 12:38 Patient Location: Day Surgery Unit Vital Signs Most Recent Imported Vital Signs: Most Recent Vital Signs Temp Pulse Resp BP Pulse Ox 35.8 C L 56 L 16 98/58 L 99 12/01/23 12:42 12/01/23 12:42 12/01/23 12:42 12/01/23 12:42 12/01/23 12:42 Pain Score Most Recent Pain Score: Most Recent Pain Score Pain Level 3 12/01/23 12:42 Assessment Mental Status: Awake (Alert & Oriented to Patient Baseline) Airway and Respiratory Function: Patent airway with normal (patient baseline) respiratory exam Cardiovascular Function: Hemodynamically Stable Hydration Status: Adequately Hydrated Nausea & Vomiting: No Nausea or Vomiting Pain: Pain is tolerable per patient Peripheral Nerve Block: Patient did not receive a nerve block
== END 2023-12-01 14:16 | disposition home or self-care (01) ==
LOC: SUR 08:54
PROVIDERS: PCP Student in an Organized Health Care Education/Training Program; Visit Provider Student in an Organized Health Care Education/Training Program
PROC: (CPT 29870; principal; 2023-12-01 09:45)
DX: S83.241A Other tear of medial meniscus, current injury, right knee, initial encounter (principal); M11.261 Other chondrocalcinosis, right knee; M94.261 Chondromalacia, right knee; S83.281A Other tear of lateral meniscus, current injury, right knee, initial encounter; X58.XXXA Exposure to other specified factors, initial encounter
CPT/HCPCS: 29876; 29880; J0461; J0690; J1100; J1170; J1805; J1885; J2001; J2270; J2405; J2704

== ENCOUNTER 2024-08-21 06:18 | Day surgery (SDC) | payer OTHER, SELFPAY ==
[2024-08-21 06:24] VITALS: BP 157/84; PULSE 60; RESP 16; TEMP 36.6; O2SAT 97
[2024-08-21] MEDS: Lactated Ringers 1,000 ML 80 ML IV (06:44)
--- NOTE | 2024-08-21 07:06 | W.ANESPRE ---
General Info Date of Service Date Performed: 08/21/24 Height: 5 ft 8 in Weight: 95.6 kg Body Mass Index (BMI): 32.0 Surgical Procedure: Operation Date: 08/21/24 07:35 Proposed Procedure Side Surgeon p Colonoscopy Bright Nath MD Actual Procedure Side Surgeon p Colonoscopy Not Applicable Bright Nath MD Pre-Op Diagnosis Post-Op Diagnosis screening colonoscopy Meds Allergies and Home Medications Allergies Allergy/AdvReac Type Severity Reaction Status Date / Time No Known Allergies Allergy Verified 08/21/24 06:24 Home Medication ?Medication ?Instructions ?Recorded omeprazole 20 mg capsule,delayed 20 mg PO DAILY PRN #90 tab-caps 02/28/17 release lisinopril 10 mg tablet 10 mg PO DAILY 10/24/23 bisacodyl 5 mg tablet,delayed 5 mg PO ONCE #4 tabs 08/02/24 release (Dulcolax (bisacodyl)) polyethylene glycol 3350 17 17 g PO ONCE #238 grams 08/02/24 gram/dose oral powder Current Visit Medications: Current Medications Generic Name Dose Route Start Last Admin Trade Name Saiq PRN Reason Stop Dose Admin Ringer's Solution 1,000 mls @ 80 mls/hr 08/21/24 06:00 08/21/24 06:44 IV 09/19/24 23:59 80 mls/hr INFUSION DREW Administration IV Miscellaneous Supplies 1 each 08/21/24 06:00 Iv Access IV 09/19/24 23:59 DIRECTED DREW Sodium Chloride 0 ml 08/21/24 06:00 Normal Saline Flush 10 Ml Syr IV 09/19/24 23:59 PRN PRN Sodium Chloride 0 ml 08/21/24 06:00 Normal Saline 10 Ml Vial IJ 09/19/24 23:59 DIRECTED PRN Sterile Water 0 ml 08/21/24 06:00 Water,Injection,Sterile 10 Ml Vial IJ 09/19/24 23:59 DIRECTED PRN PFSH Active Problems Active Problems: Problem Status Onset Code Chondrocalcinosis of right knee Acute M11.261 Acute medial meniscal injury of right knee Acute S83.8X1A Chondrocalcinosis Acute M11.20 Right knee injury Acute ~02/2021 S89.91XA 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 Acute medial meniscal injury of left knee Acute ~12/2020 S83.8X2A S/P right rotator cuff repair Acute 08/27/20 Z98.890 Gastroesophageal reflux disease with esophagitis Acute K21.0 Annual physical exam Acute 11/13/14 Z00.00 Medical History Medical History Reactive airway disease Essential hypertension Knee pain Bursitis of right shoulder Traumatic tear of right rotator cuff (~01/2020) Strain of right gastrocnemius muscle Bursitis of right shoulder Biceps tendinopathy of right upper extremity Hamstring tightness of both lower extremities Tightness of both gastrocnemius muscles Gastrocnemius strain, left Surgical History Surgical History Tonsillectomy PROCEDURES l shoulder bone spurs, fixed a tear. r knee arthroscopy l achilles tendon Colonoscopy - IV Sedation (05/04/15) Tobacco Smoking/Tobacco Use Status: Former Tobacco Use Alcohol Alcohol Intake: current Alcohol intake frequency: a few times a week Substance Use Substance use: Never Substance use type: does not use Vital Signs and Lab Results Vital Signs Most Recent Vital Signs in EMR: Most Recent Vital Signs Temp Pulse Resp BP Pulse Ox 36.6 C 60 16 157/84 H 97 08/21/24 06:24 08/21/24 06:24 08/21/24 06:24 08/21/24 06:24 08/21/24 06:24 Lab Results Blood Type / Crossmatch: No Data to Display Complete Blood Count: No Data to Display Complete Metabolic Panel: No Data to Display Liver Function Panel: No Data to Display Coagulation Panel: No Data to Display Cardiac Panel: No Data to Display Arterial Blood Gas: No Data to Display Venous Blood Gas: No Data to Display Pancreas Panel: No Data to Display Thyroid Panel: No Data to Display Infectious Disease: No Data to Display Blood Cultures: No Data to Display Toxicology Panel: No Data to Display Anesthesia Assessment and Plan Anesthesia History Personal History: No History of Anesthesia Complications Family History: No Family History of Anesthesia Complications Exercise Tolerance Exercise Tolerance: Metabolic Equivalents>4 Pertinent Negatives Pertinent Negatives: No Symptoms of GERD (Takes Rx) Cardiac & Pulmonary Exam Cardiac Exam: Normal S1/S2 Heart Sounds Pulmonary Exam: Clear Bilateral Breath Sounds Implantable Cardiac Device Does patient have a Pacemaker or an ICD?: No Airway Exam Known Difficult Airway: No Mallampati Class: 2 Mouth Opening: Normal (> 3cm) Thyromental Distance: Greater than 3 cm Neck Range of Motion: Full ROM Neck Circumference: Normal Teeth Condition: Normal Dentition ASA Classification ASA Score: ASA 2 Emergency Case?: No NPO Status NPO Status: NPO Clears >2 hours, Solids >8 hours Anesthesia Plan Resuscitation Status: Full Code Anesthesia Technique: General Anesthesia Airway Planned: Natural Airway Monitors Used: Standard Monitors
[2024-08-21 07:07] VITALS: BMI 32.0
--- NOTE | 2024-08-21 08:06 | W.COLOREPORT ---
Date of service: 08/21/24 Time of Service: 08:06 Colonoscopy Report Procedure Description: PROCEDURES PERFORMED: 1. Colonoscopy PREOPERATIVE DIAGNOSIS: Surveillance colonoscopy POSTOPERATIVE DIAGNOSIS: Normal colon SURGEON: Lulu Nath MD INDICATION FOR PROCEDURE: the patient is a 58-year-old man with no family history of colon cancer. He has no symptoms of concern. Due for his surveillance colonoscopy. FINDINGS: No polyps. No inflammation. No diverticular disease. No obvious hemorrhoid disease. SURVEILLANCE interval/FOLLOW-UP: 10 years SPECIMENS: None EBL: Minimal COMPLICATIONS: None QUALITY of prep: Excellent Procedure in detail: The patient gave written consent and was in agreement with the indications, the potential risks as well as the benefits of the procedure. They were taken to the endoscopy suite and laid in the left lateral decubitus position. A timeout was performed and anesthesia was administered which was tolerated well. I started the procedure. Digital rectal and visual examination was performed and grossly within normal limits except for a couple of benign?appearing skin tags. A well-lubricated flexible colonoscope was then introduced and passed without any notable difficulty all the way to the cecum identified by the ileocecal valve and the appendiceal orifice. The scope was then slowly withdrawn with the above-noted findings. The patient tolerated the procedure well and was taken to the PACU in hemodynamically stable condition.
--- NOTE | 2024-08-21 08:08 | W.PM.DSUDISC ---
Date of service: 08/21/24 Discharge Plan Disposition Patient Disposition: Home Condition: Good Discharge Details Attending Provider: Bright Nath Primary Care Provider: Thaddeus Lange Home Meds and New Rx's Prescriptions: No Action lisinopril 10 mg tablet 10 mg PO DAILY bisacodyl [Dulcolax (bisacodyl)] 5 mg tablet,delayed release (DR/EC) 5 mg PO ONCE Qty: 4 0RF Rx Instructions: Take per colonoscopy instructions provided by ordering providers office polyethylene glycol 3350 17 gram/dose powder 17 g PO ONCE Qty: 238 0RF Rx Instructions: Take per colonoscopy instructions provided by ordering providers office omeprazole 20 MG capsule,delayed release(DR/EC) 20 mg PO DAILY PRNQty: 90 Discharge Instructions Additional Instructions: FINDINGS: Your colon and rectum are normal, healthy and there were no polyps or concerning findings. Repeat another colonoscopy in 10 years. Activity:: Activity as Tolerated Diet:: As Tolerated
[2024-08-21 08:09] VITALS: BP 123/61; PULSE 60; RESP 16; TEMP 36.3; O2SAT 98
--- NOTE | 2024-08-21 08:32 | W.ANESPOSTOP ---
Postoperative Evaluation Date, Time and Location Date Performed: 08/21/24 Time Performed: 08:32 Patient Location: Day Surgery Unit Vital Signs Most Recent Imported Vital Signs: Most Recent Vital Signs Temp Pulse Resp BP Pulse Ox 36.3 C L 60 16 123/61 98 08/21/24 08:09 08/21/24 08:09 08/21/24 08:09 08/21/24 08:09 08/21/24 08:09 Pain Score Most Recent Pain Score: Most Recent Pain Score Pain Level 0 08/21/24 08:09 Assessment Mental Status: Awake (Alert & Oriented to Patient Baseline) Airway and Respiratory Function: Patent airway with normal (patient baseline) respiratory exam Cardiovascular Function: Hemodynamically Stable Hydration Status: Adequately Hydrated Nausea & Vomiting: No Nausea or Vomiting Pain: Pt. Denies Any Pain Peripheral Nerve Block: Patient did not receive a nerve block
[2024-08-21 08:45] VITALS: BP 143/87; PULSE 59; RESP 16; TEMP 36.3; O2SAT 98
== END 2024-08-21 09:29 | disposition home or self-care (01) ==
PROVIDERS: PCP Student in an Organized Health Care Education/Training Program; Visit Provider Student in an Organized Health Care Education/Training Program
PROC: 0DJD8ZZ Inspection of Lower Intestinal Tract, Via Natural or Artificial Opening Endoscopic (ICD-10-PCS; CPT 45378; principal; 2024-08-21 07:30)
DX: Z12.11 Encounter for screening for malignant neoplasm of colon (principal)
CPT/HCPCS: 45378; J2003; J2704

== ENCOUNTER 2025-01-14 13:33 | Outpatient (REF) | payer BC, SELFPAY ==
[2025-01-14 15:32] LABS: Hemoglobin A1C 4.9 % (<5.7)
[2025-01-14 16:07] LABS: ALT 42 U/L (16-63); AST 29 U/L (15-37); Albumin 4.3 g/dL (3.4-5.0); Alkaline Phosphatase 107 U/L (46-116); Anion Gap 6.1 mmol/L (3-11); BUN 16 mg/dL (7-18); Bilirubin, Total 1.4 mg/dL (0.2-1.0); CO2 30.9 mmol/L (21.0-32.0); Calcium 9.4 mg/dL (8.5-10.1); Chloride 101 mmol/L (98-107); Cholesterol 270 mg/dL (<200); Estimated GFR 76.85 (mL/min/1.73m2); Glucose 111 mg/dL (74-106); HDL Cholesterol 41 mg/dL (>or=40); Potassium 4.2 mmol/L (3.5-5.1); Sodium 138 mmol/L (136-145); Total Protein 7.2 g/dL (6.4-8.2); Triglyceride 592 mg/dL (<150)
[2025-01-14 20:09] LABS: LDL CHOLESTEROL 124 mg/dL (<100)
[2025-01-14 23:23] LABS: PSA, Screening 0.8 ng/mL (<=4.5)
== END 2025-01-14 13:34 | disposition home or self-care (01) ==
LOC: NCHCN 13:33
PROVIDERS: PCP Student in an Organized Health Care Education/Training Program; Visit Provider Physician Assistant
DX: Z13.1 Encounter for screening for diabetes mellitus (principal); Z12.5 Encounter for screening for malignant neoplasm of prostate; E78.5 Hyperlipidemia, unspecified
CPT/HCPCS: 80053; 80061; 83721; 84153; 83036